=== PATIENT | male | born 1965 | race Caucasian/White ===

== ENCOUNTER 2016-11-17 07:18 | Day surgery (SDC) | payer BC, OTHER ==
[~2016-11-17 07:18] MED LIST: Lactated Ringers 1,000 ML IV SCH; Sodium Chloride 0.9% 10 ML Syringe FLUSH PRN; Sodium Chloride 0.9% 2.5 ML Syringe FLUSH PRN
[2016-11-17] MEDS ORDERED: Propofol 200 MG/20 ML SDV ONE ×2 (07:22→08:27)
[2016-11-17] MEDS ORDERED: Midazolam 1 MG/ML 2 ML SDV ONE (07:22)
[2016-11-17] MEDS ORDERED: fentaNYL 100 MCG/2 ML SDV ONE (07:23)
--- NOTE | 2016-11-17 08:11 | PCM.PREANE ---
Preanesthetic Assessment - Anesthesia/Transfusion/Family Hx Anesthesia History: Prior Anesthesia Without Reaction Family History of Anesthesia Reaction: No Transfusion History: No Prior Transfusion(s) Intubation History: Unknown - Review of Systems General: No Symptoms Pulmonary: No Symptoms Cardiovascular: No Symptoms Neurological: Numbness Other: Reports: None - Physical Assessment NPO Status Date: 11/16/16 NPO Status Time: 23:30 O2 Sat by Pulse Oximetry: 98 Respiratory Rate: 14 Vital Signs: Last Vital Signs Temp 36.6 C 11/17/16 07:30 Pulse 83 11/17/16 07:30 Resp 14 11/17/16 07:30 BP 156/88 H 11/17/16 07:30 Pulse Ox 98 11/17/16 07:30 Height: 1.75 m Weight: 107.048 kg ASA Class: 3 Mental Status: Alert & Oriented x3 Airway Class: Mallampati = 2 Dentition: Reports: Normal Dentition Thyro-Mental Finger Breadths: 3 Mouth Opening Finger Breadths: 3 ROM/Head Extension: Full Lungs: Clear to auscultation, Normal respiratory effort Cardiovascular: Regular Rate, Regular Rhythm - Allergies Allergies/Adverse Reactions: Allergies Allergy/AdvReac Type Severity Reaction Status Date / Time No Known Allergies Allergy Verified 11/15/16 09:14 - Blood Blood Available: No - Anesthesia Plan Pre-Op Medication Ordered: None Beta Kyle: Carvedilol Med Last Dose Date: 11/16/16 Med Last Dose Time: 07:00 - Acknowledgements Anesthesia Type Planned: MAC Pt an Appropriate Candidate for the Planned Anesthesia: Yes Alternatives and Risks of Anesthesia Discussed w Pt/Guardian: Yes Pt/Guardian Understands and Agrees with Anesthesia Plan: Yes PreAnesthesia Questionnaire HEENT History: Reports: Other (see below) Other HEENT History: wears glasses Cardiovascular History: Reports: High cholesterol, Hypertension, Other (see below) (h/o stroke 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 side numbness and subsequent thalamic pain syndrome (leg pain)) Gastrointestinal History: Reports: GERD Genitourinary History: Reports: Neurogenic bladder Neurological History: Reports: CVA, Other (see below) Other Neuro History: stroke 2 yrs ago Psychiatric History: Reports: Depression Endocrine/Metabolic History: Reports: Diabetes, type II, IDDM, Obesity/BMI 30+ - Past Surgical History Head Surgeries/Procedures: Reports: None GI Surgical History: Reports: Appendectomy, Hernia, inguinal (right) Male Surgical History: Reports: Lithotripsy (ESWL) - SUBSTANCE USE Smoking Status *Q: Former Smoker Tobacco Use Within Last Twelve Months: No Recreational Drug Use History: No - HOME MEDS Home Medications: Home Meds Aspirin 325 mg PO DAILY 11/15/16 [History] Canagliflozin [Invokana] 300 mg PO DAILY 11/15/16 [History] Carvedilol 6.25 mg PO BID 11/15/16 [History] Clopidogrel Bisulfate [Plavix] 75 mg PO DAILY 11/15/16 [History] DULoxetine HCl [Cymbalta] 60 mg PO DAILY 11/15/16 [History] Dulaglutide [Trulicity] 1.5 mg SUBCUT WEEKLY 11/15/16 [History] Hydrochlorothiazide 25 mg PO DAILY 11/15/16 [History] Insulin Aspart [NovoLOG] 1 injection SUBCUT ASDIRECTED 11/15/16 [History] Insulin Glarg,Human.Rec.Analog [Lantus] 60 units SUBCUT DAILY 11/15/16 [History] Moexipril HCl [Moexipril] 2 tab PO DAILY 11/15/16 [History] Omeprazole Magnesium [Prilosec Otc] 20 mg PO ASDIRECTED PRN 11/15/16 [History] Simvastatin [Zocor] 40 mg PO DAILY 11/15/16 [History] buPROPion HCl [Wellbutrin SR] 150 mg PO DAILY 11/15/16 [History] - CURRENT (IN HOUSE) MEDS Current Meds: Current Medications Lactated Ringer's (Ringers, Lactated) 1,000 mls @ 125 mls/hr IV ASDIRECTED ELIZABETH Last Admin: 11/17/16 07:33 Dose: 125 mls/hr Sodium Chloride (Saline Flush) 10 ml FLUSH ASDIRECTED PRN PRN Reason: Keep Vein Open Sodium Chloride (Saline Flush) 2.5 ml FLUSH ASDIRECTED PRN PRN Reason: Keep Vein Open Discontinued Medications Fentanyl (Sublimaze) Confirm Administered Dose 100 mcg .ROUTE .STK-MED ONE Stop: 11/17/16 07:24 Midazolam HCl (Versed 1 Mg/Ml) Confirm Administered Dose 2 mg .ROUTE .STK-MED ONE Stop: 11/17/16 07:23 Propofol (Diprivan 20 Ml) Confirm Administered Dose 200 mg .ROUTE .[facility] ONE Stop: 11/17/16 07:23
[2016-11-17] MEDS ORDERED: Dextrose 5% in Water 500 ML IV SCH (08:15)
--- NOTE | 2016-11-17 08:59 | PCM.OPNOTE ---
- General Post-Op/Procedure Note Date of Surgery/Procedure: 11/17/16 Operative Procedure(s): Diagnostic colonoscopy Findings: 3 sigmoid colon polyps Pre Op Diagnosis: BRBPR Post-Op Diagnosis: 3 sigmoid colon polyps Anesthesia Technique: MAC Primary Surgeon: Kylie Zhang Condition: Good
--- NOTE | 2016-11-17 09:14 | PCM.POSTAN ---
POST ANESTHESIA ASSESSMENT - MENTAL STATUS Mental Status: alert, oriented - RESPIRATORY Respiratory Status: respiratory rate WNL, airway patent, O2 saturation stable - CARDIOVASCULAR CV Status: pulse rate WNL, blood pressure stable - GASTROINTESTINAL GI Status: no symptoms - POST OP HYDRATION Hydration Status: adequate & stable - OBSERVATIONS Free Text/Narrative:: no anesthesia problems
[2016-11-17 09:22] VITALS: BP 137/74
--- NOTE | 2016-11-17 21:23 | OR ---
SURGEON: CULLEN JENNINGS MD DATE OF PROCEDURE: 11/17/2016 PREOPERATIVE DIAGNOSIS: Intermittent bright red bleeding per rectum. POSTOPERATIVE DIAGNOSIS: Three sigmoid polyps. PROCEDURE PERFORMED: Colonoscopy. INSTRUMENT USED: Olympus colonoscope. ANESTHESIA: MAC. EXTENT OF EXAM: To the cecum. PREPARATION: Fair. LIMITATIONS: None. INDICATIONS FOR EXAMINATION: The patient is a 51-year-old male, who presents with intermittent bright red bleeding per rectum after having several hard large bowel movements in the past. The patient has a history of hemorrhoidal disease and when this occurred previously, it was treated successfully with increasing his fiber intake. The patient presents today for a diagnostic colonoscopy. The patient and I discussed the procedure, expected perioperative course, and risks including bleeding, infection, or damage to surrounding structures, including perforation. The patient verbalized understanding and wishes to proceed. PROCEDURE IN DETAIL: The patient was brought to the endoscopy suite and placed in left lateral decubitus position. A time-out was completed verifying the patient's name, age, date of , allergies, and procedure to be performed. Monitored anesthesia care was induced and continuous oxygen was provided via nasal cannula throughout the procedure. After adequate sedation was achieved, a digital rectal exam was performed. This examination was within normal limits. A well lubricated colonoscope was then inserted into the rectum and advanced under direct visualization to the level of cecum. Cecum was identified by both visual and anatomic landmarks. A photograph was taken of the cecal cap as well as with the scope retroflexed within the cecum. The scope was then fully withdrawn while examining the color, texture, anatomy, and integrity of the mucosa from the cecum to the anal canal. I discovered three 1-2 mm sessile polyps within the sigmoid colon. These were all removed using a cold biopsy forceps and sent as sigmoid polyp number 1, 2, and 3. The remainder of the colon appeared normal. The scope was then brought into the rectum and retroflexed to allow visualization of the anal canal opening which appeared normal and I did not note any significant hemorrhoidal disease. Photograph was taken. The scope was straightened out and removed from the patient. The procedure was terminated. The patient was transferred to recovery room in stable condition. Cecum to anus time was 17 minutes. ENDOSCOPIC DIAGNOSIS: Three sigmoid colon polyps. RECOMMENDATIONS: Follow up in the clinic in 2 weeks. FAVIOLA TATE /[id number] MTDD
== END 2016-11-17 09:35 | disposition home or self-care (01) ==
LOC: MW.SDS 07:18
PROVIDERS: ATTEND Surgery
DX: K63.5 Polyp of colon (principal); K59.00 Constipation, unspecified; I10 Essential (primary) hypertension; G43.909 Migraine, unspecified, not intractable, without status migrainosus; G89.0 Central pain syndrome; E78.00 Pure hypercholesterolemia, unspecified; E11.9 Type 2 diabetes mellitus without complications; Z79.82 Long term (current) use of aspirin; Z79.4 Long term (current) use of insulin; Z79.899 Other long term (current) drug therapy; Z79.02 Long term (current) use of antithrombotics/antiplatelets; Z87.442 Personal history of urinary calculi; Z86.73 Personal history of transient ischemic attack (TIA), and cerebral infarction without residual deficits; Z90.49 Acquired absence of other specified parts of digestive tract; Z98.890 Other specified postprocedural states; Z87.891 Personal history of nicotine dependence
CPT/HCPCS: 45380; J2250; J3010; J7120; 00810; 88305; J2704

== ENCOUNTER 2017-07-28 06:28 | Day surgery (SDC) | payer OTHER ==
[2017-07-28] MEDS ORDERED: Lactated Ringers 1,000 ML IV SCH (07:00)
[2017-07-28] MEDS ORDERED: Propofol 200 MG/20 ML SDV ONE (07:13)
[2017-07-28] MEDS ORDERED: Ondansetron 4 MG/2 ML SDV ONE (07:14)
[2017-07-28] MEDS ORDERED: fentaNYL 100 MCG/2 ML SDV ONE ×2 (07:14→08:46)
[2017-07-28] MEDS ORDERED: Midazolam 1 MG/ML 2 ML SDV ONE (07:14)
[2017-07-28] MEDS ORDERED: diphenhydrAMINE 50 MG/ML SDV ONE (07:14)
[2017-07-28] MEDS ORDERED: Ketorolac 30 MG/ML SDV ONE (07:14)
--- NOTE | 2017-07-28 07:20 | PCM.PREANE ---
Preanesthetic Assessment - Anesthesia/Transfusion/Family Hx Anesthesia History: Prior Anesthesia Without Reaction Family History of Anesthesia Reaction: No Transfusion History: No Prior Transfusion(s) Intubation History: Unknown - Review of Systems General: No Symptoms Pulmonary: No Symptoms Cardiovascular: No Symptoms Gastrointestinal: No Symptoms Neurological: No Symptoms Other: Reports: None - Physical Assessment NPO Status Date: 07/27/17 O2 Sat by Pulse Oximetry: 97 Respiratory Rate: 16 Vital Signs: Last Vital Signs Temp 36.4 C 07/28/17 06:38 Pulse 86 07/28/17 06:38 Resp 16 07/28/17 06:38 BP 154/91 H 07/28/17 06:38 Pulse Ox 97 07/28/17 06:38 Height: 1.75 m Weight: 108.862 kg ASA Class: 3 Mental Status: Alert & Oriented x3 Airway Class: Mallampati = 1 Dentition: Reports: Normal Dentition ROM/Head Extension: Full Lungs: Clear to Auscultation, Normal Respiratory Effort Cardiovascular: Regular Rate, Regular Rhythm - Allergies Allergies/Adverse Reactions: Allergies Allergy/AdvReac Type Severity Reaction Status Date / Time No Known Allergies Allergy Verified 07/26/17 09:47 - Anesthesia Plan Pre-Op Medication Ordered: None - Acknowledgements Anesthesia Type Planned: General Anesthesia, MAC Pt an Appropriate Candidate for the Planned Anesthesia: Yes Alternatives and Risks of Anesthesia Discussed w Pt/Guardian: Yes Pt/Guardian Understands and Agrees with Anesthesia Plan: Yes Additional Comments: PMH: DM type 2, on insulin pump. basal rate turned off at 3 am for glucose of 41, glucose up to 120 by 6 am. Has been on plavis after CVA, stopped plavix 5 day ago. Has controlled HTN. Plan MAC or GA/LMA per surgeons choice. PreAnesthesia Questionnaire HEENT History: Reports: Other (See Below) Other HEENT History: wears glasses Cardiovascular History: Reports: High Cholesterol, Hypertension, Other (See Below) Other Cardiovascular History: had a stroke 3 years ago, still has pain and burning in left leg Respiratory History: Reports: Sleep Apnea Other Respiratory History: does not use a CPAP Gastrointestinal History: Reports: GERD Genitourinary History: Reports: Renal Calculus Neurological History: Reports: CVA Other Neuro History: stroke 3 yrs ago Psychiatric History: Reports: Depression Endocrine/Metabolic History: Reports: Diabetes, Type II, IDDM, Obesity/BMI 30+ - Past Surgical History Head Surgeries/Procedures: Reports: None GI Surgical History: Reports: Appendectomy, Colonoscopy, Hernia, Inguinal Male Surgical History: Reports: Lithotripsy (ESWL) - SUBSTANCE USE Smoking Status *Q: Former Smoker Tobacco Use Within Last Twelve Months: No Recreational Drug Use History: No - HOME MEDS Home Medications: Home Meds Carvedilol 6.25 mg PO DAILY 11/15/16 [History] Clopidogrel Bisulfate [Plavix] 75 mg PO DAILY 11/15/16 [History] DULoxetine HCl [Cymbalta] 30 mg PO DAILY 11/15/16 [History] Hydrochlorothiazide 25 mg PO DAILY 11/15/16 [History] Insulin Aspart [NovoLOG] 1 injection SUBCUT ASDIRECTED 11/15/16 [History] Moexipril HCl [Moexipril] 2 tab PO DAILY 11/15/16 [History] Omeprazole Magnesium [Prilosec Otc] 20 mg PO ASDIRECTED PRN 11/15/16 [History] Simvastatin [Zocor] 40 mg PO DAILY 11/15/16 [History] buPROPion HCl [Wellbutrin SR] 150 mg PO DAILY 11/15/16 [History] Aspirin [Adult Low Dose Aspirin EC] 81 mg PO DAILY 07/26/17 [History] - CURRENT (IN HOUSE) MEDS Current Meds: Current Medications Hydrocodone Bitart/Acetaminophen ([place] 325-5 Mg) 1 tab PO Q4H PRN PRN Reason: Pain Bupivacaine HCl/Epinephrine Bitart (Marcaine 0.25%/Epinephrine 1:200,000) 30 ml INJECT ONETIME ONE Stop: 07/28/17 08:01 Cefazolin Sodium/Dextrose 2 gm (/ Premix) 50 mls @ 100 mls/hr IV ONETIME ONE Stop: 07/28/17 07:59 Lactated Ringer's (Ringers, Lactated) 1,000 mls @ 125 mls/hr IV ASDIRECTED ELIZABETH Last Admin: 07/28/17 06:45 Dose: 125 mls/hr
[2017-07-28] MEDS ORDERED: Bupivacaine 25%/EPINEPHrine/PF 30 ML ONE (07:23)
[2017-07-28] MEDS ORDERED: ceFAZolin 2 GM in Premix Bag 1 BAG IV ONE (07:30)
[2017-07-28] MEDS ORDERED: ceFAZolin 1 GM Vial ONE (07:34)
[2017-07-28] MEDS ORDERED: Bupivacaine 0.25%/EPINEPHrine 1:200,000 10 ML SDV INJECT ONE (08:00)
--- NOTE | 2017-07-28 10:04 | PCM.POSTAN ---
POST ANESTHESIA ASSESSMENT - MENTAL STATUS Mental Status: Alert, Oriented - RESPIRATORY Respiratory Status: Respiratory Rate WNL, Airway Patent, O2 Saturation Stable - CARDIOVASCULAR CV Status: Pulse Rate WNL, Blood Pressure Stable - GASTROINTESTINAL GI Status: No Symptoms - POST OP HYDRATION Hydration Status: Adequate & Stable
--- NOTE | 2017-07-28 10:05 | PCM48HPAN ---
Post Anesthesia Note - EVALUATION WITHIN 48HRS OF ANESTHETIC Vital Signs in Normal Range: Yes Patient Participated in Evaluation: Yes Respiratory Function Stable: Yes Airway Patent: Yes Cardiovascular Function Stable: Yes Hydration Status Stable: Yes Pain Control Satisfactory: Yes Nausea and Vomiting Control Satisfactory: Yes Mental Status Recovered: Yes
[2017-07-28 10:39] VITALS: BP 151/88
--- NOTE | 2017-07-28 13:33 | PCM.OPNOTE ---
- General Post-Op/Procedure Note Date of Surgery/Procedure: 07/28/17 Operative Procedure(s): left cubital and carpal tunnel releases Pre Op Diagnosis: left cubital and carpal tunnel syndrome Post-Op Diagnosis: Same Anesthesia Technique: General LMA, Local Primary Surgeon: Magalie Hale Pecan Mallow Dipper: Estefany Navarro Complications: None Condition: Good Free Text/Narrative:: Intake & Output 07/27/17 07/28/17 07/28/17 23:59 07:59 15:59 Intake Total 1150 Balance 1150
--- NOTE | 2017-07-31 23:50 | OR ---
SURGEON: ANTIONE MCKAY MD DATE OF PROCEDURE: 07/28/2017 PREOPERATIVE DIAGNOSIS: Left cubital and carpal tunnel syndrome. POSTOPERATIVE DIAGNOSIS: Left cubital and carpal tunnel syndrome. PROCEDURE: 1. Left cubital tunnel release. 2. Left carpal tunnel release. BESSEMER REGULATOR: FRITZ Huff. ANESTHESIA: General LMA with local. INDICATIONS: Mr. Benitez is a 51-year-old gentleman seen today in evaluation for left cubital and carpal tunnel syndrome. Risks and benefits of the procedure were discussed with him and his family, and they were in agreement to proceed. Risks were including, but not limited to, bleeding, infection, damage to underlying or overlying structures, possible need for future interventions, possible scarring. PROCEDURE IN DETAIL: After informed consent was obtained and placed on the chart, the patient was brought to the operating theater and laid in the supine position. After adequate local MAC anesthesia was obtained, the area was prepped and draped and a time-out was completed to confirm side and site. Attention was then paid to prepping and draping, and exsanguination of the arm. The tourniquet was insufflated to 200 mmHg. Attention was then paid to the left carpal tunnel and a 15 blade was used to dissect through the skin and subcutaneous tissues under direct visualization. Once adequately released, the area was copiously irrigated, then closed using 5- 0 nylon stitch in a horizontal mattress fashion after complete release was appreciated. Attention was then paid to the left cubital tunnel area and dissection was carried through the skin and subcutaneous tissues. The nerve was significantly stuck in the scar tissue and thus it was located, breached, and the dissection was carried up into the lower upper arm and distally through the flexor carpi ulnaris muscle belly. Once adequately released, the tourniquet was desufflated and meticulous hemostasis was obtained. Once adequately hemostased, the wound was copiously irrigated and then closed in a running subcuticular fashion with deep dermal 3-0 Monocryl stitches. The wound was dressed with Steri-Strips. The wrist was then dressed with Xeroform, fluffs, and a Kerlix gauze dressing and a 2-inch Justo wrap, and the elbow was dressed with an ABD and 3-inch Justo. The patient tolerated this well. All counts and needles were correct at the end of the case. FOLLOWUP INSTRUCTIONS: The patient will see us in clinic in 10 to 14 days or sooner if any problems, questions, or concerns. LAURO / LEA /[id number]
[2017-08-02] MEDS ORDERED: Acetaminophen/HYDROcodone 325-5 MG Tab PO PRN (08:00)
== END 2017-07-28 10:34 | disposition home or self-care (01) ==
LOC: MW.SDS 06:28
PROVIDERS: ATTEND Plastic Surgery
DX: G56.02 Carpal tunnel syndrome, left upper limb (principal); G56.22 Lesion of ulnar nerve, left upper limb; I10 Essential (primary) hypertension; E11.9 Type 2 diabetes mellitus without complications; Z79.82 Long term (current) use of aspirin; Z79.899 Other long term (current) drug therapy
CPT/HCPCS: 64718; 64721; 82962; J0690; J1200; J1885; J2250; J2405; J3010; J7120; 01810; J2704

== ENCOUNTER 2017-08-30 06:28 | Day surgery (SDC) | payer OTHER ==
--- NOTE | 2017-08-30 06:58 | PCM.PREANE ---
Preanesthetic Assessment - Anesthesia/Transfusion/Family Hx Anesthesia History: Prior Anesthesia Without Reaction Family History of Anesthesia Reaction: No Transfusion History: No Prior Transfusion(s) Intubation History: Unknown - Review of Systems General: No Symptoms Pulmonary: No Symptoms Cardiovascular: No Symptoms Gastrointestinal: No Symptoms Neurological: No Symptoms Other: Reports: None - Physical Assessment O2 Sat by Pulse Oximetry: 95 Respiratory Rate: 16 Vital Signs: Last Vital Signs Temp 36.2 C 08/30/17 06:42 Pulse 86 08/30/17 06:42 Resp 16 08/30/17 06:42 BP 138/76 08/30/17 06:42 Pulse Ox 95 08/30/17 06:42 Height: 1.75 m Weight: 108.862 kg ASA Class: 3 Mental Status: Alert & Oriented x3 Airway Class: Mallampati = 2 Dentition: Reports: Normal Dentition Thyro-Mental Finger Breadths: 3 Mouth Opening Finger Breadths: 3 ROM/Head Extension: Full Lungs: Clear to Auscultation, Normal Respiratory Effort Cardiovascular: Regular Rate, Regular Rhythm - Allergies Allergies/Adverse Reactions: Allergies Allergy/AdvReac Type Severity Reaction Status Date / Time No Known Allergies Allergy Verified 08/24/17 16:03 - Blood Blood Available: No - Anesthesia Plan Pre-Op Medication Ordered: None Beta Kyle: Carvedilol Med Last Dose Date: 08/29/17 Med Last Dose Time: 07:00 - Acknowledgements Anesthesia Type Planned: MAC Pt an Appropriate Candidate for the Planned Anesthesia: Yes Alternatives and Risks of Anesthesia Discussed w Pt/Guardian: Yes Pt/Guardian Understands and Agrees with Anesthesia Plan: Yes PreAnesthesia Questionnaire HEENT History: Reports: Other (See Below) Other HEENT History: wears glasses Cardiovascular History: Reports: High Cholesterol, Hypertension, Other (See Below) Other Cardiovascular History: had a stroke 3 years ago, still has pain and burning in left leg Respiratory History: Reports: Sleep Apnea Other Respiratory History: does not use a CPAP Gastrointestinal History: Reports: GERD Genitourinary History: Reports: Neurogenic Bladder Neurological History: Reports: CVA, Migraines, Other (See Below) Other Neuro History: stroke 2 yrs ago (thalamus)- thalamic pain syndrome with pain in his left leg Psychiatric History: Reports: Depression Endocrine/Metabolic History: Reports: Diabetes, Type II, IDDM, Obesity/BMI 30+ - Past Surgical History Head Surgeries/Procedures: Reports: None GI Surgical History: Reports: Appendectomy, Hernia, Inguinal (right) Male Surgical History: Reports: Lithotripsy (ESWL) Musculoskeletal Surgical History: Reports: Carpal Tunnel (left 2 weeks ago) - SUBSTANCE USE Smoking Status *Q: Former Smoker (quit 3 years ago) Tobacco Use Within Last Twelve Months: No Recreational Drug Use History: No - HOME MEDS Home Medications: Home Meds Carvedilol 6.25 mg PO DAILY 11/15/16 [History] Clopidogrel Bisulfate [Plavix] 75 mg PO DAILY 11/15/16 [History] DULoxetine HCl [Cymbalta] 30 mg PO DAILY 11/15/16 [History] Hydrochlorothiazide 25 mg PO DAILY 11/15/16 [History] Insulin Aspart [NovoLOG] 1 injection SUBCUT ASDIRECTED 11/15/16 [History] Moexipril HCl [Moexipril] 2 tab PO DAILY 11/15/16 [History] Omeprazole Magnesium [Prilosec Otc] 20 mg PO ASDIRECTED PRN 11/15/16 [History] Simvastatin [Zocor] 40 mg PO DAILY 11/15/16 [History] buPROPion HCl [Wellbutrin SR] 150 mg PO DAILY 11/15/16 [History] Aspirin [Adult Low Dose Aspirin EC] 81 mg PO DAILY 07/26/17 [History] - CURRENT (IN HOUSE) MEDS Current Meds: Current Medications Hydrocodone Bitart/Acetaminophen ([place] 325-5 Mg) 1 tab PO Q4H PRN PRN Reason: Pain Bupivacaine HCl/Epinephrine Bitart ([place] 0.25%/Epinephrine 1:200,000) 10 ml INJECT ONETIME ONE Stop: 08/30/17 08:01 Cefazolin Sodium/Dextrose 2 gm (/ Premix) 50 mls @ 100 mls/hr IV ONETIME ONE Stop: 08/30/17 08:29 Lactated Ringer's (Ringers, Lactated) 1,000 mls @ 500 mls/hr IV .BOLUS ELIZABETH
[2017-08-30] MEDS ORDERED: Midazolam 1 MG/ML 2 ML SDV ONE (07:16)
[2017-08-30] MEDS ORDERED: Lidocaine 2% 5 ML SDV ONE (07:16)
[2017-08-30] MEDS ORDERED: Propofol 200 MG/20 ML SDV ONE (07:16)
[2017-08-30] MEDS ORDERED: fentaNYL 100 MCG/2 ML SDV ONE (07:16)
[2017-08-30] MEDS ORDERED: Bupivacaine 25%/EPINEPHrine/PF 30 ML ONE (07:23)
[2017-08-30] MEDS ORDERED: ceFAZolin/Dextrose,Iso-Osmotic 2 GM/50 ML Duplex Bag IV ONE (07:23)
[2017-08-30] MEDS ORDERED: Bupivacaine 0.25%/EPINEPHrine 1:200,000 10 ML SDV INJECT ONE (08:00)
[2017-08-30] MEDS ORDERED: Lactated Ringers 1,000 ML IV SCH (08:00)
[2017-08-30] MEDS ORDERED: Acetaminophen/HYDROcodone 325-5 MG Tab PO PRN (08:00)
[2017-08-30] MEDS ORDERED: ceFAZolin 2 GM in Premix Bag 1 BAG IV ONE (08:00)
[2017-08-30 08:59] VITALS: BP 139/77
--- NOTE | 2017-08-30 09:15 | PCM48HPAN ---
Post Anesthesia Note - EVALUATION WITHIN 48HRS OF ANESTHETIC Vital Signs in Normal Range: Yes Patient Participated in Evaluation: Yes Respiratory Function Stable: Yes Airway Patent: Yes Cardiovascular Function Stable: Yes Hydration Status Stable: Yes Pain Control Satisfactory: Yes Nausea and Vomiting Control Satisfactory: Yes Mental Status Recovered: Yes Resp Rate: 15 - COMMENTS/OBSERVATIONS Free Text/Narrative:: No anesthesia problems. patient skipped recovery room phase of postoperative care.
--- NOTE | 2017-08-31 16:51 | PCM.OPNOTE ---
- General Post-Op/Procedure Note Date of Surgery/Procedure: 08/30/17 Operative Procedure(s): right carpal tunnel release Pre Op Diagnosis: right carpal tunnel Post-Op Diagnosis: Same Anesthesia Technique: Local, MAC Primary Surgeon: Magalie Hale Drencher: Estefany Navarro Complications: None Condition: Good Free Text/Narrative:: [id number]
--- NOTE | 2017-08-31 21:36 | OR ---
SURGEON: ANTIONE MCKAY MD DATE OF PROCEDURE: 08/30/2017 PREOPERATIVE DIAGNOSIS: Right carpal tunnel syndrome. POSTOPERATIVE DIAGNOSIS: Right carpal tunnel syndrome. PROCEDURE: Right carpal tunnel release. FIELD MACHINIST: FRITZ Huff. ANESTHESIA: Local MAC. REASON FOR FIELD MACHINIST: Retraction, prepping, draping, and closure assistance. INDICATIONS: Mr. Benitez is a 51-year-old gentleman who has previously had a left cubital and carpal tunnel release. He has done very well with this and is here for right side. Risks and benefits were discussed with him including, but not limited to, bleeding, infection, damage to underlying or overlying structures, possible need for future interventions, and possible scarring. PROCEDURE IN DETAIL: After informed consent was obtained and placed on the chart, the patient was brought to the operating theater and laid in supine position. After adequate local MAC anesthesia obtained, the area was prepped and draped, and a time-out was completed to confirm side and site. Once adequately prepped and draped, attention was then paid to time-out to confirm side and site. The arm was exsanguinated, and tourniquet was then inflated to 200 mmHg. Once completed, the attention was paid to dissection. A 15 blade was used to dissect through the transverse carpal ligament and skin under direct visualization. Once breached, dissection was carried distally and proximally under direct visualization using a Littler scissor. Once adequately released, the area was copiously irrigated and closed using a 5-0 nylon stitch in a horizontal mattress fashion. The wounds were then dressed with Xeroform fluffs and a Kerlix gauze dressing and a 2-inch Justo wrap. The patient tolerated this well. All counts and needles were correct at the end of the case. FOLLOWUP INSTRUCTIONS: The patient will see us in 2 weeks for suture removal, sooner if any problems, questions, or concerns. HEGGTHE / MODL /[id number]
== END 2017-08-30 09:00 | disposition home or self-care (01) ==
LOC: MW.SDS 06:28
PROVIDERS: ATTEND Plastic Surgery
DX: G56.01 Carpal tunnel syndrome, right upper limb (principal); I10 Essential (primary) hypertension; E11.9 Type 2 diabetes mellitus without complications; Z79.82 Long term (current) use of aspirin; Z79.4 Long term (current) use of insulin; Z79.899 Other long term (current) drug therapy
CPT/HCPCS: 64721; J0690; J2250; J3010; 01810; J2704